=== PATIENT | female | born 1950 | race Caucasian/White ===

== ENCOUNTER 2016-10-18 17:52 | Emergency (ER) | payer MEDICARE, MEDICAID ==
[~2016-10-18 17:52] MED LIST: ALBUTEROL SULF8.5 GM IH; ALBUTEROL2.5 MG/3 M IH; BENADRYL25 MG/TA1 PO; BIOTENE1000 ML MM; CLARITIN10 M8 PO; EMBELINE15 GM TP; IPRATROPIU0.2 MG/1 M IH; LASIX40 M1 PO; LEVOTHYROXINE112 MC3 PO; NASACORT10.8 ML NS; NEBULIZER; OCUFLOX5 ML OP; PREDNISONE20 MG PO; SYMBICORT 160-1 PUFF INH; SYMBICORT INH; TYLENOL500 MG PO
[2016-10-18 19:14] LABS: BASO % 0.2 % (0-2); EOS % 0.1 % (0-7); HCT-HEMATOCRIT 35.8 % (34.0-49.0); HGB-HEMOGLOBIN 11.9 gm/dl (12.0-15.5); IMMATURE GRANULOCYTES ABSOLUTE 0.03 tho/cmm (0-0.03); IMMATURE GRANULOCYTES PERCENT 0.3 % (0-0.3); LYMPH % 9.1 % (20-45); LYMPH ABSOLUTE COUNT 0.9 tho/cmm (0.8-4.5); MCH (MEAN CORPUSCULAR HGB) 30.5 pg (28.0-32.0); MCHC MEAN CORPUSCULAR HGB CONC 33.2 % (32.0-36.0); MCV (MEAN CELL VOLUME) 91.8 fl (82.0-96.0); MEAN PLATELET VOLUME 8.8 cmc (9.4-12.4); MONO % 10.1 % (0-12); NEUTROPHIL ABSOLUTE COUNT 7.7 tho/cmm (1.6-8.0); NEUTROPHIL-AUTOMATED 7.7 tho/cmm (1.6-8.0); NEUTROPHILS % 80.2 % (40-80); PLATELET COUNT 266 tho/cmm (150-450); RED CELL DISTRIBUTION WIDTH 13.7 % (12.4-16.4); WHITE BLOOD COUNT 9.6 tho/cmm (4.0-10.0)
[2016-10-18 19:29] LABS: ANION GAP 13 mmol/L (0-20); BLOOD UREA NITROGEN 9 mg/dl (6-24); CALCIUM 8.9 mg/dl (8.5-10.5); CARBON DIOXIDE-VENOUS 24 mmol/L (22-32); CHLORIDE 104 mmol/l (96-110); CREATININE 0.84 mg/dl (0.50-1.10); GLUCOSE 109 mg/dL (70-110); POTASSIUM 3.8 mmol/L (3.7-5.1); SODIUM 137 mmol/L (135-145); eGFR VALUE FOR BLACK 83 mL/Min
[2016-10-18] MEDS ORDERED: AUGMENTIN 875-1 EAC2 PO (21:14)
== END 2016-10-18 21:55 ==
LOC: EDMED 17:52
PROVIDERS: Emergency Medicine
DX: K04.7 Periapical abscess without sinus (principal); Z85.828 Personal history of other malignant neoplasm of skin
CPT/HCPCS: J0295; J2270; J7030; Q9967